=== PATIENT | male | born 1995 | race African-American/Black ===

== ENCOUNTER 2017-10-11 15:30 | Emergency (ER) | payer OTHER ==
[~2017-10-11] VITALS: Ht 182.9 cm; Wt 71.0 kg
[2017-10-11 15:42] VITALS: TEMP 37; Ht 182.9 cm; Wt 71.0 kg
[2017-10-11] MEDS ORDERED: PENI-82 PO (16:40)
[2017-10-11] MEDS ORDERED: HYDR-5688 PO (16:40)
--- NOTE | 2017-10-11 16:41 | EMERGENCY ROOM VISIT NOTE ---
History First contact with patient: 15:52 Chief Complaint: DENTAL PAIN Stated Complaint: EXCRUTIATING TOOTH/MOUTH PAIN Nursing Triage Summary: Patient ambulatory to triage with an upright and steady gait, states "I have excruciating pain in my right lower jaw/teeth since Sunday. One of my cavities fell out a while ago and I never got it filled back in." Patient took advil earlier today. History of Present Illness The patient is a 22 year old male who presents to the Emergency Room with complaints of dental pain. The patient reports that he has had pain in 1 of his back right lower molars for the past 4 days. He states that he had a cavity in that area and the filling fell out a while ago, but he never got it fixed by a dentist. He reports that he has a throbbing, constant pain in the area rated a 7/10. The pain does improve slightly with Advil. He is returning home to [place] in 1 week and plans to follow-up with a dentist there. He denies any facial swelling, fevers, difficulty breathing or difficulty swallowing. Review of Systems A complete 10 point review of systems was reviewed with the patient with pertinent positives and negatives as per history of present illness. All else were negative. Past Medical/Surgical History Medical Problems: (1) Asthma Surgical Problems: (1) History of appendectomy Social History Smoking Status: Never Smoker Alcohol Use: occasionally Occupation Status: [employer] Current/Historical Medications Scheduled Penicillin V Potassium (Veetids), 500 MG PO QID Scheduled PRN Hydrocodone/Acetaminophen 5MG/325MG ([place] 5MG/325MG), 1 TABLET PO Q4H PRN for Pain Physical Exam Vital Signs Date Time Temp Pulse Resp B/P (MAP) Pulse Ox O2 Delivery O2 Flow Rate FiO2 10/11/17 16:48 59 17 135/61 97 10/11/17 15:42 37.0 72 16 120/65 96 Room Air Physical Exam VITALS: Vitals are noted on the nurse's note and reviewed by myself. Vital signs stable. GENERAL: This is a 22-year-old male, in no acute distress, nondiaphoretic, well- developed well-nourished. SKIN: The skin was without rashes. EARS: External auditory canals clear, tympanic membranes pearly swift without erythema or effusion bilaterally. EYES: Pupils equal round and reactive to light and accommodation. NOSE: Patent, turbinates without inflammation or discharge. MOUTH: Mucous membranes moist. No significant erythema or edema of the gums. No facial swelling. No drainage. NECK: Supple without nuchal rigidity. No lymphadenopathy. HEART: Regular rate and rhythm without murmurs gallops or rubs. LUNGS: Clear to auscultation bilaterally without wheezes, rales or rhonchi. NEURO: Patient was alert and oriented to person place and time. Medical Decision & Procedures Medical Decision Differential diagnosis includes dental caries, dental abscess, Antoni's angina, among others. The patient was evaluated as above. He presents today with dental pain. He is planning to follow-up closely with a dentist when he arrives home. He was given a prescription for penicillin and a short course of pain medication. Conservative measures were discussed. He was advised to return for worsening pain, fevers, swelling or other new/concerning symptoms. He verbalized understanding of my assessment and treatment plan and was discharged home in good condition. [place] Drug Monitoring Program Search Results: patient reviewed within database, no issues identified Medication Reconcilliation Current Medication List: was personally reviewed by ar Blood Pressure Screening Patient's blood pressure: Normal blood pressure Impression Primary Impression: Dentalgia Departure Information Dispostion Home / Self-Care Condition GOOD Prescriptions Hydrocodone/Acetaminophen 5MG/325MG ([place] 5MG/325MG) Tab 1 TABLET PO Q4H Y for Pain, #12 TAB For Initial Treatment Prov: Tammy Barakat PA-C 10/11/17 Penicillin V Potassium (Veetids) 500 Mg Tab 500 MG PO QID for 10 Days, #40 TAB Prov: Tammy Barakat PA-C 10/11/17 Referrals No Doctor, Assigned (PCP) Patient Instructions My [facility] Additional Instructions You have been treated in the Emergency Department for Dental Pain. You have been prescribed [place] to be used for pain control. This is a narcotic medication. You cannot drive or consume alcohol while on this medicine. This medicine should only be used for pain that cannot be controlled with over-the- counter pain medicines. You were prescribed penicillin to be taken as prescribed. This is an antibiotic. All antibiotics have the potential to cause diarrhea. Stop this medication and contact a medical provider if you were to develop any significant adverse side effects including: wheezing, shortness of breath, passing out, vomiting, or a diffuse rash. Always take antibiotics as directed and COMPLETE the ENTIRE course regardless of the improvement of your symptoms. For pain control, you can use the following [id number] medicines (if >12 yo): - Regular strength (325mg/tab) Tylenol (acetaminophen) 2 tabs every 4-6 hours as needed. Do not exceed 12 tablets in a 24 hour period. Avoid taking more than 4 grams (4000 mg) of Tylenol per day. This includes any other sources of acetaminophen you may take on a regular basis. - Regular strength (200 mg/tab) Advil (ibuprofen) 1-2 tabs every 4-6 hours as needed. Do not exceed a dose of 3200 mg per day. Refrain from smoking cigarettes or using chewing tobacco until you have been evaluated by your dentist. Keeping beverages lukewarm and consuming soft foods can decrease your pain. Warm compresses over the affected area may offer some relief. You MUST seek evaluation of your dental pain by a dentist following your visit to the Emergency Department. The Emergency Department is not capable of treating dental issues long-term. You should call your dentist as soon as possible to make an appointment for evaluation of your dental pain. Return to the emergency department if you develop the following symptoms despite treatment course outlined above: fever, intractable pain, increased redness, swelling, or purulent discharge.
[2017-10-11 16:48] VITALS: BP 135/61; PULSE 59; O2SAT 97
== END 2017-10-11 16:49 | disposition home or self-care (01) ==
LOC: C.EDB 15:32 → C.EDD 16:49
DX: K08.89 Other specified disorders of teeth and supporting structures (principal); J45.909 Unspecified asthma, uncomplicated